=== PATIENT | female | born 1980 | race Caucasian/White ===

== ENCOUNTER → 2023-05-19 14:59 | Outpatient (REF) | payer OTHER, SELFPAY ==
--- NOTE | 2023-05-19 15:05 | CA_ITS ---
Transthoracic Echocardiogram Patient (Last, First, Middle): Vinita Guzman W Gender: Female Date of : 1980 Age: 42 Procedure Date: 05/19/2023 Procedure Type: Transthoracic Echocardiogram Location: OP Height: 160.02 cm Weight: 58.97 kg BSA: 1.61 m2 Heart Rate: bpm BP: 100 / 68 mmHg Program Assistant: TO Referring MD: Mara Cullen PA-C Symptoms: R00.2 PALPITATIONS Study Quality: Adequate ECG Rhythm: Sinus Conclusions: - The left ventricular systolic function is normal. The calculated ejection fraction is 65% by biplane method. - No obvious valvular pathology seen on this study. Findings Left Ventricle Normal left ventricular cavity size. There is normal left ventricular wall thickness. The left ventricular systolic function is normal. The calculated ejection fraction is 65% by biplane method. There is no evidence of regional wall motion abnormalities. Diastolic function is normal for age. Right Ventricle Normal right ventricular cavity size and systolic function. Atria Both atria are normal in size. Aortic Valve There is a normal trileaflet aortic valve. There is no aortic valve stenosis. There is no aortic valve regurgitation. Mitral Valve The mitral valve appears normal. There is trace mitral valve regurgitation. There is trace mitral valve stenosis. Pulmonic Valve The pulmonic valve is likely normal. Tricuspid Valve There is trace tricuspid valve regurgitation. There is no evidence of pulmonary hypertension. Great Vessels The asc aorta is normal in size. Venous The inferior vena cava is normal in size and collapses greater than 50% with inspiration. Pericardium/Pleural There is no evidence of pericardial effusion. Prior Study Comparison No prior study available for comparison. Recommendations, Care & Conclusions No obvious valvular pathology seen on this study. Measurements 2D Linear Measurements IVSd: 0.73 0.6-0.9/0.6-1.0 cm LVIDd: 4.15 3.9-5.3/4.2-5.9 cm LVIDd Index: 2.58 2.4-3.2/2.2-3.1 cm/m2 LVIDs: 2.72 2.0-3.6 cm LVPWd: 0.78 0.7-1.1 cm LA Diam: 3.10 2.7-3.8/3.0-4.0 cm LAIDs Index: 1.93 1.5-2.3 cm/m2 LV Mass: 113.84 67-162/88-224 g LV Mass Index: 70.71 43-95/49-115 g/m2 LVOT Diam: 2.00 3.0+(-)1.3 cm 2D Systolic Function EF 4C: 64.70 >55% EF 2C: 63.60 >55% EF BiP: 64.60 >55% Mitral Valve MV Pk E: 0.84 MV PK A: 0.44 MV Decel Time: 227.00 E/A: 1.90 E'Lateral: 13.40 E'Medial: 12.00 E/E' Med: 7.00 E/E' Lat: 6.30 PHT: 68.00 MVA PHT: 3.24 Decel Burke: 3.57 LVOT LVOT Diam: 2.00 LVOT Area: 3.14 Diastolic Function MV Pk E: 0.84 MV Pk A: 0.44 E/A: 1.90 E'Medial: 12.00 E/E' Med: 7.00 E' Laterial: 13.40 E/E' Lat: 6.30 Tricuspid Valve TR Pk Irvin: 1.21 TR Pk Grad: 6.00 RA Press: 3.00 RVSP: 9.00 Great Vessels Aorta Sinus of Valsalva: 2.55 2.0-3.5 cm Ao Asc: 2.80 2.1-3.4 cm Ao Arch: 2.60 Updated in Other Vendor System with Status of Final Rey Pastrana MD electronically signed on 05/20/2023 1:35:00 PM with status of Final
== END ==
LOC: HO.CARD 14:59
PROVIDERS: Visit Provider Physician Assistant
DX: R00.2 Palpitations (principal)
CPT/HCPCS: 93306

== ENCOUNTER → 2023-05-19 15:05 | Outpatient (BNV) | payer OTHER, SELFPAY | PROVIDERS: Visit Provider Internal Medicine | DX: R00.2 Palpitations (principal) | CPT/HCPCS: 93306 ==